=== PATIENT | female | born 1940 | race Caucasian/White ===

== ENCOUNTER 2017-11-29 16:52 | Emergency (ER) | payer SELFPAY ==
[~2017-11-29] VITALS: Ht 160 cm; Wt 48.0 kg
[2017-11-29 17:08] VITALS: BP 137/63; PULSE 52; RESP 18; TEMP 97.8; O2SAT 97
[2017-11-29 17:13] VITALS: BP 137/63; PULSE 50; RESP 16; TEMP 97.8; O2SAT 100
[2017-11-29] MEDS ORDERED: OMEP20TA93 PO (17:21)
[2017-11-29] MEDS ORDERED: VITA500T4 PO (17:21)
[2017-11-29] MEDS ORDERED: BUSP10TA PO (17:21)
[2017-11-29] MEDS ORDERED: DONE10TA7 PO (17:21)
[2017-11-29] MEDS ORDERED: D31000CA3 PO (17:21)
[2017-11-29] MEDS ORDERED: MEMA1TAB2 PO (17:21)
[2017-11-29] MEDS ORDERED: DULO1CAP PO (17:21)
[2017-11-29] MEDS ORDERED: SODIUM CHLOR 0.9% 1000 ML INJ 1,000 ML IV SCH (17:32)
--- NOTE | 2017-11-29 17:37 | PD ---
HPI Chief Complaint: GI Complaint Time Seen by Provider: 17:21 Travel History International Travel<30 days: No Contact w/Intl Traveler<30days: No Traveled to known affect area: No History of Present Illness HPI Patient visiting from [place] at a [employer] on yesterday (ate a hamburger), positive nausea vomiting dizziness this morning. EMS her blood pressure was 90/60 heart rate was 40s and a evaluate her. She states she has had 4-5 episodes of vomiting bile. Accu-Chek was 107. She has never had these symptoms before. He denies fever, chills, diarrhea, chest pain, she does have some shortness of breath after vomiting she initially had some abdominal pain with vomiting. She is passing flatus. PFSH Past Medical History Anxiety: Yes Depression: Yes Dementia: Yes GERD: Yes Dilation and Curettage (D&C): Yes Past Surgical History Hysterectomy: Yes Social History Alcohol Use: No Tobacco Use: No Substance Use: No Allergies-Medications (Allergen,Severity, Reaction): Coded Allergies: No Known Allergies (Unverified , 11/29/17) PATIENT CANNOT RECALL WHAT MEDICATION SHE WAS GIVEN THAT SHE DEVELOPED AN ALLERGY TOO, BUT IT WAS GIVEN FOR ANXIETY Reported Meds & Prescriptions Reported Meds & Active Scripts Active Reported Vitamin B-12 (Cyanocobalamin) 500 Mcg Tab 500 Mcg PO DAILY Vitamin D-3 (Cholecalciferol) 1,000 Unit Cap 1,000 Units PO DAILY Memantine 10 Mg Tab 10 Mg PO BID Donepezil 10 Mg Tab 10 Mg PO HS Omeprazole 20 Mg Tab 20 Mg PO DAILY Duloxetine DR (Duloxetine HCl) 20 Mg Capdr 20 Mg PO DAILY Buspirone (Buspirone HCl) 10 Mg Tab 5 Mg PO BID Review of Systems Except as stated in HPI: all other systems reviewed are Neg Physical Exam Narrative GENERAL: No acute distress. SKIN: Focused skin assessment warm/dry. HEAD: Atraumatic. Normocephalic. EYES: Pupils equal and round. No scleral icterus. No injection or drainage. ENT: No nasal bleeding or discharge. Mucous membranes pink and moist. NECK: Trachea midline. No JVD. CARDIOVASCULAR: Regular rate and rhythm. No murmur appreciated. RESPIRATORY: No accessory muscle use. Clear to auscultation. Breath sounds equal bilaterally. GASTROINTESTINAL: Abdomen soft, non-tender, nondistended. Hepatic and splenic margins not palpable. MUSCULOSKELETAL: No obvious deformities. No clubbing. No cyanosis. No edema. NEUROLOGICAL: Awake and alert. No obvious cranial nerve deficits. Motor grossly within normal limits. Normal speech. PSYCHIATRIC: Appropriate mood and affect; insight and judgment normal. Data Data Last Documented VS Vital Signs Date Time Temp Pulse Resp B/P (MAP) Pulse Ox O2 Delivery O2 Flow Rate FiO2 11/29/17 17:50 57 18 100 Room Air 11/29/17 17:13 97.8 Orders Orders Complete Blood Count With Diff (11/29/17 17:32) Comprehensive Metabolic Panel (11/29/17 17:32) Lipase (11/29/17 17:32) Lactic Acid (11/29/17 17:32) Prothrombin Time / Inr (Pt) (11/29/17 17:32) Act Partial Throm Time (Ptt) (11/29/17 17:32) Urinalysis - C+S If Indicated (11/29/17 17:32) Iv Access Insert/Monitor (11/29/17 17:32) Ecg Monitoring (11/29/17 17:32) Oximetry (11/29/17 17:32) NPO (11/29/17 17:32) Sodium Chlor 0.9% 1000 Ml Inj (Ns 1000 M (11/29/17 17:32) Electrocardiogram (11/29/17 17:32) Chest, Single Ap (11/29/17 17:32) B-Type Natriuretic Peptide (11/29/17 17:32) Ckmb (Isoenzyme) Profile (11/29/17 17:32) Troponin I (11/29/17 17:32) Ct Abd/Pel W/O Iv Contrast (11/29/17 17:32) Vascular Access Team Consult/P PRN (11/29/17 18:21) Vascular Poc Ultrasound (11/29/17 ) Labs Laboratory Tests Test 11/29/17 17:45 Urine Color YELLOW Urine Turbidity CLOUDY Urine pH 8.0 Urine Specific [place] 1.017 Urine Protein NEG mg/dL Urine Glucose (UA) NEG mg/dL Urine Ketones 80 OR GREATER mg/dL Urine Occult Blood NEG Urine Nitrite NEG Urine Bilirubin NEG Urine Urobilinogen 2.0 mg/dL Urine Leukocyte Esterase NEG Urine RBC 2 /hpf Urine WBC 2 /hpf Urine Amorphous Sediment MOD Urine Bacteria RARE /hpf Urine Mucus FEW /lpf Microscopic Urinalysis Comment CULT NOT INDICATED MDM Medical Decision Making Medical Screen Exam Complete: Yes Emergency Medical Condition: Yes Interpretation(s) EKG: Sinus bradycardia, rate 51 Last Impressions Chest X-Ray 11/29/17 6082 Signed Impressions: CONCLUSION: No acute cardiopulmonary abnormality is identified. No free air is visualized i n the upper abdomen. Differential Diagnosis ACS, ulcer disease, GERD/gastritis, gastroenteritis Narrative Course Patient presents to the emergency department complaint of nausea vomiting. Placed on lunchroom monitor, IV access obtained, and labs/CT/EKG/chest x-ray and IV fluids ordered. She does not want any med for n/v. Patient will be signed out to oncoming physician for labs and CT results and final dispo. Hazel Ayala MD Nov 29, 2017 17:37
[2017-11-29 17:50] VITALS: PULSE 57; RESP 18; O2SAT 100
[2017-11-29 18:14] LABS: AMORPHOUS SEDIMENT, URINE MOD; BACTERIA, URINE RARE /hpf; BILIRUBIN, URINE NEG (NEG); BLOOD, URINE NEG (NEG); GLUCOSE,URINE NEG (NEG); KETONE, URINE 80 OR GREATER mg/dL (NEG); MUCUS URINE FEW /lpf (OCC); NITRITE,URINE NEG (NEG); URINE COLOR YELLOW (YELLW/STRAW); URINE LEUKOCYTE ESTERASE NEG (NEG)
--- NOTE | 2017-11-29 18:33 | RADRPT ---
EXAM DATE: 11/29/2017 6:17 PM EDT AGE/SEX: 77 years / Female INDICATIONS: Evaluate for free air CLINICAL DATA: This is the patient's initial encounter. Patient reports that signs and symptoms have been present for 1 day and indicates a pain score of 0/10. MEDICAL/SURGICAL HISTORY: Gastroesophageal reflux disease. Hysterectomy. COMPARISON: No prior exams available for comparison. FINDINGS: Portable AP view of the chest demonstrates a normal-sized cardiac silhouette. No effusion, consolidat ion, or pneumothorax is identified. The bones and soft tissues demonstrate no acute finding. EKG line s overlie the patient. No free air is visualized. CONCLUSION: No acute cardiopulmonary abnormality is identified. No free air is visualized in the upper abdomen. Electronically signed by: Moustapha Lyn MD 11/29/2017 6:32 PM EDT
--- NOTE | 2017-11-29 19:26 | EKG ---
Date Performed: 11/29/2017 Time Performed: 18:29:55 PTAGE: 77 years EKG: SINUS BRADYCARDIA LOW QRS VOLTAGE IN PRECORDIAL LEADS BORDERLINE ECG NO PREVIOUS TRACING DOCTOR: Walt Orozco Interpretating Date/Time 11/29/2017 19:25:52
[2017-11-29] MEDS ORDERED: FAMOTIDINE 20 MG/2 ML VIAL IV PUSH SCH (19:45)
[2017-11-29] MEDS ORDERED: SODIUM CHLORID 0.9% 500 ML INJ 500 ML IV ONE (19:45)
--- NOTE | 2017-11-29 20:03 | PD ---
Physical Exam Date Seen by Provider: Nov 29, 2017 Time Seen by Provider: 20:02 Narrative Patient is signed out to me at shift change patient is pending labs patient has a CAT scan pending as well she in the ER for excessive vomiting this a.m. however she has not required any antiemetics in the ER awaiting labs and I order 500 cc of fluid and Pepcid IV she had artery received a liter from prior attending Data Data Last Documented VS Vital Signs Date Time Temp Pulse Resp B/P (MAP) Pulse Ox O2 Delivery O2 Flow Rate FiO2 11/29/17 22:05 78 16 133/68 (89) 99 Room Air 11/29/17 17:13 97.8 Orders Orders Complete Blood Count With Diff (11/29/17 17:32) Comprehensive Metabolic Panel (11/29/17 17:32) Lipase (11/29/17 17:32) Lactic Acid (11/29/17 17:32) Prothrombin Time / Inr (Pt) (11/29/17 17:32) Act Partial Throm Time (Ptt) (11/29/17 17:32) Urinalysis - C+S If Indicated (11/29/17 17:32) Iv Access Insert/Monitor (11/29/17 17:32) Ecg Monitoring (11/29/17 17:32) Oximetry (11/29/17 17:32) NPO (11/29/17 17:32) Sodium Chlor 0.9% 1000 Ml Inj (Ns 1000 M (11/29/17 17:32) Electrocardiogram (11/29/17 17:32) Chest, Single Ap (11/29/17 17:32) B-Type Natriuretic Peptide (11/29/17 17:32) Ckmb (Isoenzyme) Profile (11/29/17 17:32) Troponin I (11/29/17 17:32) Ct Abd/Pel W/O Iv Contrast (11/29/17 17:32) Vascular Access Team Consult/P PRN (11/29/17 18:21) Vascular Poc Ultrasound (11/29/17 ) Sodium Chlorid 0.9% 500 Ml Inj (Ns 500 M (11/29/17 19:45) Famotidine Inj (Pepcid Inj) (11/29/17 19:45) Us Kidney/Renal/Bladder (11/29/17 ) CKMB (11/29/17 19:13) CKMB% (11/29/17 19:13) Meclizine (Antivert) (11/29/17 23:45) Labs Laboratory Tests Test 11/29/17 17:45 11/29/17 19:13 11/29/17 20:41 Urine Color YELLOW Urine Turbidity CLOUDY Urine pH 8.0 Urine Specific [place] 1.017 Urine Protein NEG mg/dL Urine Glucose (UA) NEG mg/dL Urine Ketones 80 OR GREATER mg/dL Urine Occult Blood NEG Urine Nitrite NEG Urine Bilirubin NEG Urine Urobilinogen 2.0 mg/dL Urine Leukocyte Esterase NEG Urine RBC 2 /hpf Urine WBC 2 /hpf Urine Amorphous Sediment MOD Urine Bacteria RARE /hpf Urine Mucus FEW /lpf Microscopic Urinalysis Comment CULT NOT INDICATED White Blood Count 13.2 TH/MM3 Red Blood Count 4.32 MIL/MM3 Hemoglobin 12.9 GM/DL Hematocrit 39.7 % Mean Corpuscular Volume 91.8 FL Mean Corpuscular Hemoglobin 29.9 PG Mean Corpuscular Hemoglobin Concent 32.6 % Red Cell Distribution Width 13.6 % Platelet Count 181 TH/MM3 Mean Platelet Volume 11.7 FL Neutrophils (%) (Auto) 84.6 % Lymphocytes (%) (Auto) 10.3 % Monocytes (%) (Auto) 4.6 % Eosinophils (%) (Auto) 0.0 % Basophils (%) (Auto) 0.5 % Neutrophils # (Auto) 11.2 TH/MM3 Lymphocytes # (Auto) 1.4 TH/MM3 Monocytes # (Auto) 0.6 TH/MM3 Eosinophils # (Auto) 0.0 TH/MM3 Basophils # (Auto) 0.1 TH/MM3 CBC Comment DIFF FINAL Differential Comment Blood Urea Nitrogen 14 MG/DL Creatinine 0.72 MG/DL Random Glucose 90 MG/DL Total Protein 7.0 GM/DL Albumin 3.7 GM/DL Calcium Level 9.2 MG/DL Alkaline Phosphatase 76 U/L Aspartate Amino Transf (AST/SGOT) 30 U/L Alanine Aminotransferase (ALT/SGPT) 21 U/L Total Bilirubin 0.9 MG/DL Sodium Level 143 MEQ/L Potassium Level 4.2 MEQ/L Chloride Level 110 MEQ/L Carbon Dioxide Level 20.4 MEQ/L Anion Gap 13 MEQ/L Estimat Glomerular Filtration Rate 79 ML/MIN Lactic Acid Level 2.0 mmol/L Total Creatine Kinase 102 U/L Creatine Kinase MB 1.6 NG/ML Troponin I LESS THAN 0.02 NG/ML B-Type Natriuretic Peptide 47 PG/ML Lipase 85 U/L Prothrombin Time 10.5 SEC Prothromb Time International Ratio 1.0 RATIO Activated Partial Thromboplast Time 19.2 SEC [facility] Medical Record Reviewed: Yes Supervised Visit with CARMELITA: No Narrative Course Patient reports feeling much better CT shows a structure in the kidney that is not specifically cystic and recommend an ultrasound to diagnose further I order a bedside ultrasound renal to decide what the mass inside the kidney could be otherwise patient feeling much better other labs are normal mild elevation WBC- 13.2 Diagnosis Primary Impression: Vomiting Qualified Codes: R11.10 - Vomiting, unspecified Patient Instructions: Acute Nausea and Vomiting (ED), General Instructions, Vertigo (ED) Scripts Ondansetron Odt (Zofran Odt) 4 Mg Tab 4 MG SL Q6HR Y for Nausea/Vomiting, #20 TAB 0 Refills Prov: Abisai Beckman MD 11/29/17 Meclizine (Meclizine) 25 Mg Tab 25 MG PO TID Y for VERTIGO, #15 TAB 0 Refills Prov: Abisai Beckman MD 11/29/17 Abisai Beckman MD Nov 29, 2017 20:03
[2017-11-29 20:11] LABS: AUTOMATED NEUTROPHIL # 11.2 TH/MM3 (1.8-7.7); BASOPHIL # 0.1 TH/MM3 (0-0.2); BASOPHIL % 0.5 % (0.0-2.0); HEMATOCRIT 39.7 % (35.0-46.0); HEMOGLOBIN 12.9 GM/DL (11.6-15.3); LYMPH % 10.3 % (9.0-44.0); LYMPHOCYTE # 1.4 TH/MM3 (1.0-4.8); MEAN CELL VOLUME 91.8 FL (80.0-100.0); MEAN CORPUSCULAR HEMOGLOBIN 29.9 PG (27.0-34.0); MEAN CORPUSCULAR HGB CONC 32.6 % (32.0-36.0); MEAN PLATELET VOLUME 11.7 FL (7.0-11.0); MONO % 4.6 % (0.0-8.0); MONOCYTE # 0.6 TH/MM3 (0-0.9); NEUT % 84.6 % (16.0-70.0); PLATELET COUNT 181 TH/MM3 (150-450); RED BLOOD COUNT 4.32 MIL/MM3 (4.00-5.30); RED CELL DISTRIBUTION WIDTH 13.6 % (11.6-17.2); WHITE BLOOD COUNT 13.2 TH/MM3 (4.0-11.0)
[2017-11-29 20:22] LABS: ALT (GPT) 21 U/L (10-53)
[2017-11-29 20:25] VITALS: BP 140/63; PULSE 86; RESP 18; O2SAT 100
--- NOTE | 2017-11-29 20:33 | RADRPT ---
EXAM DATE: 11/29/2017 7:39 PM EDT AGE/SEX: 77 years / Female INDICATIONS: Vomiting CLINICAL DATA: This is the patient's initial encounter. Patient reports that signs and symptoms have been present for 1 day and indicates a pain score of 0/10. MEDICAL/SURGICAL HISTORY: . DEMENTIA Hysterectomy. RADIATION DOSE: 4.61 CTDI (mGy) COMPARISON: No prior exams available for comparison. TECHNIQUE: Multiple contiguous axial images were obtained through the abdomen. Images were obtained using multiple row detector helical technique. Using automated exposure control and adjustment of the mA and/or kV according to patient size, radiation dose was kept as low as reasonably achievable to o btain optimal diagnostic quality images. DICOM format image data is available electronically for rev iew and comparison. FINDINGS: Examination quality is degraded by motion artifact. Lower chest: No acute abnormality is identified. Hepatobiliary: There are at least 7 low density lesions in the liver measuring up to 2.3 cm. The lesi ons greater than 1 cm in size and density measurements consistent with cysts while the smaller lesion s are too small to characterize. No calcified gallstones are present. Kidneys: There is mild bilateral hydronephrosis and hydroureter. No renal stones are present. There i s an exophytic low-density lesion at the lower pole the right kidney with Hounsfield measurements of 25. This lesion measures 3.9 cm. Adrenal Glands: Within normal limits. Spleen: Within normal limits. Pancreas: Within normal limits. Vascular: The aorta is nonaneurysmal. There is mild atherosclerotic disease. Bowel/Mesentery: The stomach and small bowel demonstrate no abnormality. No acute colon abnormality i s seen. There is no free intraperitoneal air or fluid. Abdominal Wall: No hernia is visualized. Retroperitoneum: No lymphadenopathy. Bladder: No wall thickening or mass. Urinary bladder is distended. Reproductive: Uterus is absent. No adnexal abnormality is identified. Inguinal: No lymphadenopathy or hernia. Musculoskeletal: There are degenerative changes of the spine but no acute osseous abnormality is seen . CONCLUSION: 1. No specific abnormality is identified to explain the vomiting. Examination is mildly degraded by motion artifact. 2. There is moderate bilateral hydronephrosis and hydroureter with distended urinary bladder. No obs tructing process is seen. The mild hydronephrosis could be related to the urinary bladder distention or reflux. 3. There is a 3.9 cm lesion at the lower pole the right kidney which does not meet criteria for a si mple cyst. This could represent a complex cyst or solid mass. Recommend further characterization on a n elective basis with renal ultrasound. Also correlate with any prior imaging studies. Electronically signed by: Moustapha Lyn MD 11/29/2017 8:32 PM EDT
[2017-11-29 20:57] LABS: ALBUMIN 3.7 GM/DL (3.4-5.0); ALKALINE PHOSPHATASE 76 U/L (45-117); AST (GOT) 30 U/L (15-37); BICARBONATE 20.4 MEQ/L (21.0-32.0); BLOOD UREA NITROGEN 14 MG/DL (7-18); CALCIUM 9.2 MG/DL (8.5-10.1); CHLORIDE 110 MEQ/L (98-107); CREATININE 0.72 MG/DL (0.50-1.00); GLOMERULAR FILTRATION RATE 79 ML/MIN (>89); GLUCOSE,RANDOM 90 MG/DL (74-106); SODIUM (NA) 143 MEQ/L (136-145); TOTAL BILIRUBIN ADULT 0.9 MG/DL (0.2-1.0); TROPONIN I LESS THAN 0.02 NG/ML (0.02-0.05)
[2017-11-29 21:02] VITALS: BP 196/87; PULSE 67; RESP 16; O2SAT 96
[2017-11-29 21:17] LABS: PROTHROMBIN TIME - PATIENT 10.5 SEC (9.8-11.6)
[2017-11-29 22:05] VITALS: BP 133/68; PULSE 78; RESP 16; O2SAT 99
--- NOTE | 2017-11-29 23:03 | RADRPT ---
EXAM DATE: 11/29/2017 10:07 PM EDT AGE/SEX: 77 years / Female INDICATIONS: Mass visualized on CT. CLINICAL DATA: This is the patient's initial encounter. Patient reports that signs and symptoms have been present for 1 day and indicates a pain score of 3/10. MEDICAL/SURGICAL HISTORY: Gastroesophageal reflux disease. Dementia. Hysterectomy. Dilation an d Curettage. COMPARISON: [facility] [place] ABDOMEN & PELVIS W/O CONTRAST, 11/29/2017. . MEASUREMENTS: Right Kidney:__9.2 x 4.7 x 4.3 cm Left Kidney:__9.7 x 4.3 x 4.5 cm FINDINGS: Right Kidney: Normal echotexture. No renal stone or solid mass is identified. There is an exophytic a nechoic avascular lesion at the lower pole measuring 3.7 x 3.9 x 3.2 cm. Fullness of the collecting s ystem is present. Left Kidney: Normal echotexture. No mass is present. There is no hydronephrosis. Bladder: Within normal limits given the degree of distension. Other: None. CONCLUSION: 1. The incidentally detected lesion in the right kidney on the recent emergent CT has features diagn ostic of a simple benign cyst. No further workup is indicated for this lesion. 2. Fullness of the collecting systems bilaterally without dave hydronephrosis appreciated. Electronically signed by: Moustapha Lyn MD 11/29/2017 11:02 PM EDT
[2017-11-29] MEDS ORDERED: MECL-62 PO (23:38)
[2017-11-29] MEDS ORDERED: ZOFR4TAB3 SL (23:38)
[2017-11-29] MEDS ORDERED: MECLIZINE HCL 25 MG TAB PO ONE (23:45)
== END 2017-11-29 23:54 | disposition home or self-care (01) ==
LOC: NEPE 16:52
DX: R11.2 Nausea with vomiting, unspecified (principal); R42 Dizziness and giddiness; R10.9 Unspecified abdominal pain; R00.1 Bradycardia, unspecified; R06.02 Shortness of breath; K21.9 Gastro-esophageal reflux disease without esophagitis
CPT/HCPCS: 71045; 74176; 76775; 80053; 81001; 82550; 82552; 83605; 83690; 83880; 84484; 85025; 85610; 85730; 93005; 96361; 96374; 99285; J7030; J7040